=== PATIENT | female | born 1980 | race Caucasian/White ===

== ENCOUNTER 2022-10-04 09:02 | Inpatient (IN) ==
--- NOTE | 2022-09-14 11:32 | PAT Medication Instructions ---
Medication Instructions Date of Service September 14, 2022 Home Medications acetaminophen 325 mg tablet (Tylenol) 325 mg PO QID PRN fluoxetine 20 mg tablet 30 mg PO QPM ibuprofen 200 mg tablet 200 mg PO Q6H PRN lorazepam 0.5 mg tablet 0.5 mg PO TID PRN multivitamin 1 tab PO QPM ASK your surgeon for instructions ibuprofen 200 mg tablet 200 mg PO Q6H PRN Take morning of surgery With a small sip of water, OTHERWISE NOTHING TO EAT OR DRINK AFTER MIDNIGHT: acetaminophen 325 mg tablet (Tylenol) 325 mg PO QID PRN(if needed) lorazepam 0.5 mg tablet 0.5 mg PO TID PRN(if needed) Take evening before surgery acetaminophen 325 mg tablet (Tylenol) 325 mg PO QID PRN(if needed) fluoxetine 20 mg tablet 30 mg PO QPM lorazepam 0.5 mg tablet 0.5 mg PO TID PRN(if needed) multivitamin 1 tab PO QPM Other Notes If you have any questions please call us at [phone] or [phone] or [phone] or [phone]
--- NOTE | 2022-09-20 14:19 | Anesthesiology Consultation ---
Date of Service September 20, 2022 Assessment & Plan (1) Encounter for pre-operative examination: - Pt expresses belief surgeon was planning to also operate on L4-L5 and she plans to call their office for clarification on booking for L5-S1. Surgeon's office also made aware. Chart Review Chart Review: Pending: Refer to Additional Notes / Consult section and Patient seen in Pre Admission Testing Teaching & Discussion Pre-Anesthesia Teaching/Discussion Notes: Instructed NPO after midnight before surgery, except medications with 15 cc of water. Medication instructions provided according to the PAT guidelines. History Surgery Operation Date: 10/04/22 10:25 Proposed Procedures p L5-S1 Decompression and Fusion, Spinal Cord Monitoring - Chaim Lorenz, Height/Weight Height: 5 ft 1 in Weight: 84.822 kg Allergies Allergy/AdvReac Type Severity Reaction Status Date / Time atorvastatin [From Lipitor] AdvReac Vomiting Verified 09/10/22 11:07 cortisone AdvReac Gastrointestinal Verified 09/10/22 11:07 Upset Medications Home Medications Medication Instructions Recorded Confirmed Last Taken acetaminophen 325 mg tablet 325 mg PO QID PRN Pain 09/10/22 09/10/22 Unknown (Tylenol) fluoxetine 20 mg tablet 30 mg PO QPM 09/10/22 09/10/22 Unknown ibuprofen 200 mg tablet 200 mg PO Q6H PRN Pain 09/10/22 09/10/22 Unknown lorazepam 0.5 mg tablet 0.5 mg PO TID PRN Anxiety 09/10/22 09/10/22 Unknown multivitamin 1 tab PO QPM 09/10/22 09/10/22 Unknown Past Medical History Medical History (Updated 09/20/22 @ 14:17 by Madison Ervin PA-C) Anxiety occasional associated palpitations, denies associated chest discomfort, shortness of breath, dizziness or lightheadedness DDD (degenerative disc disease) History of hyperlipidemia History of kidney stones Migraines Sleep apnea CPAP Symptoms consistent with irritable bowel syndrome Patient denies h/o stroke, seizures, heart attack, heart failure, DM, HTN, blood clots or blood transfusions. Exercise / Class Metabolic Activity II 4-5 Yardwork/Stairs/Walk up hill (denies chest discomfort or shortness of breath with 1 FOS) Past Family History Family History Other No family history of adverse response to anesthesia Past Surgical History Surgical History History of x 3 History of colonoscopy History of hysterectomy History of wisdom tooth extraction Past Anesthesia History No Hx of Anesthesia Complications and No Family Hx of Anesthesia Complications History of PONV No Hx of PONV and No Hx of Motion Sickness Social History Smoking Status: Never smoker Do You Dip or Chew Tobacco: No Hx Alcohol Use: No Hx Substance Use: No substance use type: does not use Review of Systems Patient denies chest pain, shortness of breath, dyspnea on exertion, reflux, fever, chills, cough, or wheezing. Physical Exam Vital Signs Vitals BP 111/74 P 68 TEMP 98.4 SP02 98% on RA RESP 18 Physical Full cervical extension range of motion without pain TMD 3.5 finger breadths Mallampati Score 3, small oral opening Dentition: intact, denies chipped or loose teeth, caps/crowns, implants or bridges Lungs: normal respiratory effort. Clear throughout to auscultation, no adventitious breath sounds Cardiac: regular rate and rhythm, no murmurs noted Carotid arteries: negative bruit bilat Lab Results Anesthesia Preop Results Results Anesthesia Widget: WBC 6.89 K/ul (4.8-10.8) 09/20/22 Hgb 14.0 g/dl (12.0-16.0) 09/20/22 Hct 42.6 % (34.1-44.9) 09/20/22 Plt 328 K/uL (130-400) 09/20/22 Na 142 mmol/L (136-145) 09/20/22 K 3.7 mmol/L (3.5-5.1) 09/20/22 Cl 104 mmol/L (98-107) 09/20/22 CO2 33 mmol/L (21-32) H 09/20/22 BUN 13 mg/dl (6-23) 09/20/22 Creat 0.80 mg/dl (0.6-1.2) 09/20/22 Glucose Level 96 mg/dl (70-99(Fasting)) 09/20/22 PT 10.3 Seconds (9.0-12.0) 09/20/22 PTT 26.9 Seconds (21.0-31.0) 09/20/22 INR 1.0 (0.9-1.1) 09/20/22 Urine Color Yellow 09/20/22 Urine Appearance Clear (Clear) 09/20/22 Urine pH 6.0 (4.5-7.5) 09/20/22 Urine Specific [place] 1.022 (1.000-1.030) 09/20/22 Urine Protein Negative (Negative) 09/20/22 Urine Glucose (UA) Negative (Negative) 09/20/22 Urine Ketones Negative (Negative) 09/20/22 Urine Blood Negative (Negative) 09/20/22 Urine Nitrite Negative (Negative) 09/20/22 Urine Bilirubin Negative (Negative) 09/20/22 Urine Urobilinogen Negative (Negative) 09/20/22 Urine Leukocyte Esterase Negative (Negative) 09/20/22 Blood Type B Positive 09/20/22 Antibody Screen NEGATIVE 09/20/22 Testing Electrocardiogram Date: 09/20/22 Sinus bradycardia, rate 59 bpm Chest X-Ray Date: 09/20/22 Cardiomediastinal and hilar silhouettes are within normal limits. No pneumothorax, pleural effusion, airspace consolidation or overt pulmonary edema. Bones of the chest appear grossly intact. IMPRESSION: No acute process. Cervical Spine Date: 07/03/22 MRI Minimal degenerative spondylosis at C5-6 and C6-7 without high-grade thecal sac or foraminal compromise Other Testing MRI L spine 08/17/22 Multilevel degenerative disc disease, greatest at the L4-5 level where results in moderate bilateral neuroforaminal stenosis Please note the transitional anatomy is present and real-time correlation with spinal levels is required before proceeding with any spinal intervention CT abdomen pelvis 07/09/22 Right hydronephrosis and right hydroureter. No ureteral stone Small calcification in the urinary bladder perhaps a recently passed stone COVID-19 Risk Screen Screening Information COVID-19 Screen Date: 09/20/22 Exposure 21 Days Family/Household +COVID Last 21 Days: No Exposure 10 Days Any COVID Exposure Last 10 Days: No Symptoms Last 10 Days Experienced COVID Sx Last 10 Days: No + COVID 0-90 Days COVID + in Last 0-90 Days: No
[~2022-10-04 09:02] MED LIST: ACETAMINOPHEN 500 MG TAB PO SCH; CeleBREX 200 MG CAP PO SCH; GABAPENTIN 900 MG DOSE PO SCH; LR 15ML/HR IV SCH; MIDAZOLAM HCL 1 MG/ML 2ML VIAL ONE; ceFAZolin 2000MG 2,000 MG/15 ML SYR IV SCH; fentaNYL citrate 100 MCG/2 ML VIAL ONE
--- NOTE | 2022-10-04 09:18 | History & Physical Bridge Note ---
Date of Service October 04, 2022 History & Physical Bridge Note I have examined the patient, reviewed the History & Physical and in the interval since the performance of the History & Physical I have noted the following changes of clinical significance: no changes noted
--- NOTE | 2022-10-04 09:19 | History & Physical Report ---
Date of Service October 04, 2022 Assessment & Plan (1) Neurogenic claudication due to lumbar spinal stenosis: Plan: L5-S1 decompression and fusion History of Present Illness Chief Complaint: Back and leg pain Primary Care Provider: LUCINA Cintron This is a 38-year-old female presents with chronic chest and back and leg pain after failing course of nonoperative care she is here for surgical invention. Allergies Allergy/AdvReac Type Severity Reaction Status Date / Time atorvastatin [From Lipitor] AdvReac Vomiting Verified 09/10/22 11:07 cortisone AdvReac Gastrointestinal Verified 09/10/22 11:07 Upset Home Medications Medication Instructions Recorded Confirmed Type acetaminophen 325 mg tablet 325 mg PO QID PRN Pain 09/10/22 09/10/22 History (Tylenol) fluoxetine 20 mg tablet 30 mg PO QPM 09/10/22 09/10/22 History ibuprofen 200 mg tablet 200 mg PO Q6H PRN Pain 09/10/22 09/10/22 History lorazepam 0.5 mg tablet 0.5 mg PO TID PRN Anxiety 09/10/22 09/10/22 History multivitamin 1 tab PO QPM 09/10/22 09/10/22 History Past Med/Surg History Medical History (Updated 10/04/22 @ 09:19 by Chaim Lorenz DO) Anxiety occasional associated palpitations, denies associated chest discomfort, shortness of breath, dizziness or lightheadedness DDD (degenerative disc disease) History of hyperlipidemia History of kidney stones Migraines Sleep apnea CPAP Symptoms consistent with irritable bowel syndrome Surgical History History of x 3 History of colonoscopy History of hysterectomy History of wisdom tooth extraction Family History Other No family history of adverse response to anesthesia Social History Smoking Status: Never smoker Second Hand Exposure: No; Do You Dip or Chew Tobacco: No; Hx Alcohol Use: No Hx Substance Use: No Preferred Language: Czech Communication Ability: Effective [employer] Required: No Beliefs That Will Affect Care: None Current Living Situation: Family Feels Safe at Home: Yes Safety Concerns: Feels Safe At This Time Assistive Devices: Glasses Assistive Devices Comment: reading glasses Physical Exam Physical Exam: Patient is alert and oriented Heart regular rhythm Lungs clear
[2022-10-04] MEDS ORDERED: DEXAMETHASONE SOD INJ 4 MG/ML VIAL ONE (09:33)
[2022-10-04] MEDS ORDERED: PROPOFOL IV EMULSION 10 MG/ML 20 ML VIAL IV ONE (09:33)
[2022-10-04] MEDS ORDERED: ROCURONIUM BROMIDE 10 MG/ML 5 ML VIAL IV ONE (09:33)
[2022-10-04] MEDS ORDERED: LIDOCAINE 2% MPF LOCAL 5 ML VIAL INFIL ONE (09:33)
[2022-10-04] MEDS ORDERED: ONDANSETRON INJ 2 MG/ML 2 ML VIAL ONE (09:33)
[2022-10-04] MEDS ORDERED: ceFAZolin 330 MG/ML 1 GM VIAL ONE (09:47)
[2022-10-04] MEDS ORDERED: BUPIVACAINE/EPINEPHRINE 0.25% 1:200,000 30 ML VIAL ONE (09:47)
[2022-10-04] MEDS ORDERED: ATROPINE SULFATE 0.1 MG/ML 10ML SYR IV PRN (09:52)
[2022-10-04] MEDS ORDERED: ONDANSETRON INJ 2 MG/ML 2 ML VIAL IV PRN ×2 (09:52→12:49)
[2022-10-04] MEDS ORDERED: HYDROmorphone INJ 2 MG/ML SYR/VIAL IV PRN (09:52)
[2022-10-04] MEDS ORDERED: ePHEDrine sulfate 50 MG/ML AMP IV PRN (09:52)
[2022-10-04] MEDS ORDERED: fentaNYL citrate 100 MCG/2 ML VIAL ONE (10:17)
[2022-10-04] MEDS ORDERED: NEOSTIGMINE METHYLSULFATE 1 MG/ML 10ML VIAL ONE (10:33)
[2022-10-04] MEDS ORDERED: GLYCOPYRROLATE 0.2 MG/ML VIAL ONE (10:33)
[2022-10-04] MEDS ORDERED: FLOSEAL HEMOSTATIC MATRIX 10ML TOP ONE (11:16)
--- NOTE | 2022-10-04 11:18 | Operative Report ---
Post Operative Report Pre & Post Diagnosis Operation Date: 10/04/22 10:25 Pre-Op Diagnosis: Lumbar spinal stenosis with neurogenic claudication Post-Op Diagnosis: Same I identified the patient and participated in the time-out.: Yes Procedure Operation Date: 10/04/22 10:25 Actual Procedures #1 lumbar decompression bilateral medial facetectomies and foraminotomies L4-L5 L5-S1. #2 posterior spinal fusion L5-S1. #3 placement posterior instrumentation L5-S1. #4 interbody fusion L5-S1. #5 placement of Spira 11 x 26 mm at L5-S1. #6 placement locally harvested morselized autograft in the posterior gutters. #7 placement of I factor combined with V toss in the interbody space and posterior lateral gutters. Surgeon Chaim Lorenz, DO Cocoa Room Operator Elisabeth Back Estimated Blood Loss 100 Findings See Below The patient is 5 foot 1 inches tall weighing over 85 kg with a BMI in excess of 35. The patient's body habitus did contribute to significant technical difficulty required deepest retractors and longer instruments in order to perform her procedure. This had at least 50% increased operative time. Specimens None Indications This is a 41-year-old female presents with above-mentioned diagnosis after failed course of nonoperative care is here for surgical invention. Description of Procedure Patient was met with identified informed consent obtained. Patient was then taken to the operative suite underwent patient placed in a prone position the [facility] top Harris frame. All bony promises well-padded eyes inspected to ensure no external pressure placed upon them. This point the lumbar spine was prepped and draped in normal sterile fashion. Sharp dissection with the assistance of Bovie cautery performed down to and exposing the lamina transverse processes of L5 and the sacral ala bilaterally. From caudal cephalad fashion complete laminectomy of L5 partial laminectomy of L4 was performed including bilateral medial facetectomies and foraminotomies addressing severe spinal stenosis. Pedicle screws were then placed in L5 and S1 levels bilaterally with assistance of fluoroscopy and appropriately sized marcell placed. By way of a transforaminal approach on the right complete discectomy of L5-S1 was performed endplates curetted to subcortically bone and 11 x 26 mm spiral cage with I factor tapped in position. The rods were then locked into final position bilaterally. The transverse processes of L5 and sacral ala burred to subco rtical bleeding bone. I factor bone of the test and locally harvested morselized autograft was placed in the posterior gutters. 15 round MARYA inserted. The incision was then closed with 1 Vicryl the fascia 2-0 Vicryl subcutaneously and 4 Monocryl for final skin closure. Steri-Strip Steri-Strip placed. Patient waken taken to PACU in stable condition. Please note spinal cord monitoring was utilized at the procedure no changes noted. Lastly Elisabeth Back was present at the entire surgery and while the patient positioning complex portions of the surgery and final skin closure. I attest to the content of the Intraoperative Record and any orders documented therein. Any exceptions are noted below.
--- NOTE | 2022-10-04 11:59 | Fluoroscopy Report ---
FL lumbar spine 2-3V CLINICAL HISTORY: L5-S1 DECOMPRESSION COMPARISON STUDY: None FLUOROSCOPY TIME: 25.7 seconds FLUOROSCOPY IMAGES: 2 EXPOSURE DOSE: 22.68 mGy FINDINGS: Posterior interbody marcell and screw fusion with discectomy. Hardware appears intact. No acute fracture identified. IMPRESSION: Fluoroscopic assistance as above. ACT 112: Negative or not required by law. Electronically signed by: Amado Cervantes M.D. 10/04/2022 11:57 AM
[2022-10-04] MEDS: fentaNYL citrate 100 MCG/2 ML VIAL IV PRN ×2 (12:03→12:08)
[2022-10-04] MEDS ORDERED: DO NOT ADMINISTER FLU VACCINE PRN (12:49)
[2022-10-04] MEDS ORDERED: NALOXONE HCL 0.4 MG/1 ML VIAL/CARP IV PRN (12:49)
[2022-10-04] MEDS ORDERED: bisacodyL 10 MG SUPP PR PRN (12:49)
[2022-10-04] MEDS ORDERED: ACETAMINOPHEN 500 MG TAB PO PRN (12:49)
[2022-10-04] MEDS ORDERED: PROMETHAZINE HCL 12.5 MG in SODIUM CHLORIDE 0.9% 50 ML IV PRN (12:49)
[2022-10-04] MEDS ORDERED: diphenhydrAMINE Capsule 25 MG CAP PO PRN (12:49)
[2022-10-04] MEDS ORDERED: ONDANSETRON 4 MG OD TAB PO PRN (12:49)
[2022-10-04] MEDS ORDERED: hydrOXYzine HCl 25 MG TAB PO PRN (12:49)
[2022-10-04] MEDS ORDERED: ALUMINUM/MAGNESIUM SUSP 30 ML UDC PO PRN (12:49)
[2022-10-04] MEDS ORDERED: SOD PHOSPHATE/SOD BIPHOSPHATE ENEMA 132 ML BTL PR PRN (12:49)
[2022-10-04] MEDS ORDERED: ACETAMINOPHEN 1,000 MG/100 ML VIAL IV PRN (12:49)
[2022-10-04] MEDS ORDERED: MAGNESIUM HYDROXIDE SUSP 30 ML UDC PO PRN (12:49)
[2022-10-04] MEDS ORDERED: METOCLOPRAMIDE HCL INJ 5 MG/ML 2 ML VIAL IV PRN (12:49)
[2022-10-04] MEDS ORDERED: HYDROmorphone INJ 1 MG/ML SYRINGE IV PRN (12:49)
[2022-10-04] MEDS ORDERED: FAMOTIDINE 20 MG TAB PO PRN (12:49)
[2022-10-04] MEDS ORDERED: HYDROmorphone INJ 0.5 MG/0.5 ML SYR IV PRN (12:49)
[2022-10-04] MEDS ORDERED: DO NOT ADMINISTER PNEUMOCOCCAL VACCINE PRN (12:49)
[2022-10-04] MEDS ORDERED: LORazepam 0.5 MG TAB PO PRN (12:49)
[2022-10-04] MEDS ORDERED: LORazepam 2 MG/1 ML VIAL IV PRN (12:49)
[2022-10-04] MEDS: oxyCODONE HCL IR 5 MG TAB (IMMEDIATE RELEASE) PO PRN ×2 (13:07→19:51)
--- NOTE | 2022-10-04 13:49 | Anesthesiology Progress Note ---
Date of Service October 04, 2022 Anesthesia Post Procedure Vital Signs Vital Signs: Temp Pulse Pulse Resp BP Pulse Ox O2 Del Method 10/04/22 13:33 98.6 F 73 16 112/77 96 Room Air 10/04/22 13:05 97.3 F L 81 16 116/77 97 Room Air 10/04/22 12:38 98.6 F 68 16 115/72 93 Room Air 10/04/22 12:25 83 18 128/81 95 Room Air 10/04/22 12:15 98.4 F 88 12 139/83 96 Room Air 10/04/22 12:05 95 H 14 139/63 95 Room Air 10/04/22 11:55 89 12 124/77 98 Room Air 10/04/22 11:45 95 H 15 127/92 100 Oxymask 10/04/22 11:36 97.7 F 87 16 120/92 98 Oxymask 10/04/22 09:34 98.2 F 75 20 119/82 97 Room Air O2 Flow Rate 10/04/22 13:33 10/04/22 13:05 10/04/22 12:38 10/04/22 12:25 10/04/22 12:15 10/04/22 12:05 10/04/22 11:55 10/04/22 11:45 8 10/04/22 11:36 8 10/04/22 09:34 Pain Intensity Lower Back: Pain Intensity: 5 Transfer of Care Handoff Completed per policy Notes Mental Status: alert / awake / arousable and participated in evaluation Patient Amnestic to Procedure: Yes Nausea / Vomiting: adequately controlled Pain: adequately controlled and improving with treatment Airway Patency, RR, SpO2: stable & adequate BP & HR: stable & adequate Hydration State: stable & adequate Anesthetic Complications: no major complications apparent and Pt Satisfied with anesthetic care
[2022-10-04] MEDS: LACTATED RINGER'S 1,000 ML IV SCH ×2 (13:53→22:25)
[2022-10-04] MEDS: ceFAZolin 2000MG 2,000 MG/15 ML SYR IV SCH (17:06)
[2022-10-04] MEDS ORDERED: Nursing to Pharmacy Communication SCH (17:15)
[2022-10-04] MEDS: FLUoxetine HCL 10 MG CAP PO SCH (18:30)
[2022-10-04] MEDS: DOCUSATE SODIUM/SENNA 50/8.6MG TAB PO SCH (19:51)
[2022-10-04] MEDS ORDERED: FLUoxetine HCL 10 MG CAP PO SCH (21:00)
[2022-10-05] MEDS: ceFAZolin 2000MG 2,000 MG/15 ML SYR IV SCH (00:38)
[2022-10-05] MEDS: POLYETHYLENE (MIRALAX) 17 GM PACK PO SCH ×3 (05:34→18:20)
[2022-10-05 06:32] LABS: Basophils # (auto) 0.02 K/uL (0-0.2); Basophils % (auto) 0.1 %; Hematocrit (blood only) 36.6 % (37.0-47.0); Hemoglobin 12.1 g/dl (12.0-16.0); Immature Granulocytes % (auto) 0.5 %; Lymphocytes # (auto) 2.04 K/uL (1.2-3.4); Lymphocytes % (auto) 11.1 %; Mean Corpuscular Hemoglobin 27.3 pg (25.0-34.0); Mean Corpuscular Hgb Conc 33.1 g/dL (32.0-36.0); Mean Corpuscular Volume 82.4 fL (80.0-100.0); Mean Platelet Volume 10.3 fL (9.4-12.4); Monocytes # (auto) 0.71 K/uL (0.11-0.59); Monocytes % (auto) 3.8 %; Neutrophils # (auto) 15.58 K/uL (1.40-6.50); Neutrophils % (auto) 84.5 %; Platelet Count 290 K/uL (130-400); RDW Coefficient of Variation 12.9 % (11.5-14.5); RDW Standard Deviation 38.6 fL (36.4-46.3); Red Blood Count 4.44 M/uL (4.20-5.40); White Blood Count 18.45 K/ul (4.8-10.8)
[2022-10-05 06:41] LABS: BUN Creatinine Ratio 17.6 (10-20); Calcium 8.8 mg/dl (8.5-10.1); Creatinine Clr Calc Pharmacy 97.4 ml/min; Est GFR (Non-African American) 99.2 ml/min; Potassium 4.3 mmol/L (3.5-5.1)
[2022-10-05] MEDS: dexAMETHasone 6 MG in SYRINGE 0 ML IV SCH (09:10)
--- NOTE | 2022-10-05 11:00 | Orthopedic Progress Note ---
Date of Service October 05, 2022 Assessment & Plan (1) Neurogenic claudication due to lumbar spinal stenosis: Plan: Guerrero is postoperative day 1 status post TLIF L5-S1. She is doing great. We will continue with ambulation. DVT prophylaxis is in the form of teds and SCDs. Maintain MARYA drain. Anticipate discharge home tomorrow. Admission and Anticipated Discharge Date Admission Date: October 04, 2022 Vee Trimble is postoperative day 1 status post TLIF L5-S1. She is doing great. No radicular leg pain. Back pain is controlled. MARYA drain output last shift was 35 cc. H&H is morning are 12.1 and 36.6 respectively. She is up and ambulatory with physical therapy and the hallways. No new complaints. Review of Systems Review of Systems: All systems reviewed & are unremarkable except as noted in HPI & below Physical Exam Physical Exam: She is lying in bed in no acute distress Alert and oriented x3 Lumbar dressing is clean dry and intact with functioning MARYA drain Strength intact bilateral lower extremity Calf soft nontender bilaterally Results & Data ([facility]) Vital Signs (Past 12 Hours) Vital Signs Temp Pulse Resp BP Pulse Ox O2 Del Method 10/05/22 07:18 36.9 C 76 16 109/74 96 Room Air 10/05/22 03:04 36.7 C 66 16 97/64 L 95 Room Air 10/05/22 00:53 37.1 C 72 14 96/60 L 94 Room Air 10/04/22 23:11 36.8 C 122 H 18 107/69 98 Room Air
[2022-10-05 11:01] VITALS: TEMP 99
[2022-10-05] MEDS: FLUoxetine HCL 10 MG CAP PO SCH (18:07)
[2022-10-05] MEDS: oxyCODONE HCL IR 5 MG TAB (IMMEDIATE RELEASE) PO PRN (20:58)
[2022-10-05] MEDS: DOCUSATE SODIUM/SENNA 50/8.6MG TAB PO SCH (20:58)
[2022-10-05] MEDS: traMADol HCL 50 MG TABLET PO PRN (22:11)
[2022-10-06] MEDS: POLYETHYLENE (MIRALAX) 17 GM PACK PO SCH ×2 (01:32→06:04)
[2022-10-06 07:35] VITALS: O2SAT 96
[2022-10-06 07:37] VITALS: BP 108/68
[2022-10-06] MEDS: dexAMETHasone 6 MG in SYRINGE 0 ML IV SCH (08:30)
--- NOTE | 2022-10-06 11:43 | Discharge Summary ---
Date of Service October 06, 2022 Admission HPI Per Admitting Provider This is a 38-year-old female presents with chronic chest and back and leg pain after failing course of nonoperative care she is here for surgical invention. Principal Diagnosis Lumbar spinal stenosis with radiculopathy Discharge Data Allergies Allergy/AdvReac Type Severity Reaction Status Date / Time atorvastatin [From Lipitor] AdvReac Intermediate Vomiting Verified 10/04/22 09:27 cortisone AdvReac Intermediate Gastrointestinal Verified 10/04/22 09:27 Upset Procedures Performed Operation Date: 10/04/22 10:25 Actual Procedures p L5-S1 Decompression and Fusion, Spinal Cord Monitoring(Not Applicable) - Chaim Lorenz DO Ordered Studies 10/04/22 10:25 [place] lumbar spine 2-3V Routine Hospital Course (1) Neurogenic claudication due to lumbar spinal stenosis: Patient with limited motion patient tolerated this well was taken to orthopedic for postoperative. Postop day 1 she was up and ambulating progressed postop day #2. Extra strength testing. Drain decreasing probably. Pain well controlled. Subsequently discharged home. Discharge orders and instructions are on the chart for further review. Total Time Total Time Spent Total Time Spent (In Minutes): 20 minutes Discharge Plan Discharge Items Patient Disposition: Home - Self-Care Reason For Visit: POSTOP Discharge Diagnosis: Lumbar spinal stenosis with radiculopathy Activity: As commented below Non-emergency contact: Primary Care Provider Call non-emergency contact if: you have any medication questions Follow-up/Referrals: Juanita West CRNP [Primary Care Provider] - Diet: Regular Addtl Attending Provider Instructions: ACTIVITY RECOMMENDATIONS: SELF CARE INSTRUCTIONS AFTER THORACIC/LUMBAR FUSIONS 1. You may walk to your tolerance. It is good exercise for your legs and back. Expect some back and intermittent leg aches and pains. 2. You may perform "counter-top" level activities (make a sandwich, carisa with a project, etc.). 3. No bending or lifting of more than 10 pounds or back twisting of any nature (roll like a log when turning in bed). 4. You may ride in a car for 20-30 minutes at a time. No driving until after your first visit with your doctor. 5. Frequent changes of position and restricting sitting to 30 minutes at a time will help limit the amount of back spasms and stiffness you may experience. 6. You may discontinue the use of ambulatory aids (cane, crutches, etc.) once your strength and confidence allow. 7. You may shipping support clerk the shower and let water strike your incision when you arrive home at least once daily. Do not take a tub bath, sit in a hot tub or go into a swimming pool until after your first recheck in the office. SPECIAL CARE INSTRUCTIONS: VERY IMPORTANT TO READ AND REVIEW A. Your surgical incision has been closed with a cosmetic suture under the skin that will dissolve in about 6 weeks. In 14 days, you can use a pair of clean scissors and cut the suture that is left outside of the skin at the ends of your incision. 1. The small skin tapes can be removed 7 days after surgery if they have not fallen off by that point. 2. You may keep the wound open to air as much as possible to promote healing after post-op day number 5 unless told otherwise by your doctor. 3. If you think the wound looks like it is becoming infected (redness or worsening drainage) and/or you are experiencing fever, chill or worsening back pain and muscle spasms, contact the office so that we may evaluate you as soon as possible. B. Complications are uncommon, but please contact us if you have any signs or symptoms of: 1. wound infection (fever higher than 102.5 degrees F, redness, separation of wound, drainage, or increasing pain from the incision) 2. blood clots in legs (pain, swelling, redness and warmth in legs) 3. urinary tract infection (fever higher than 102.5 degrees F, burning upon urination or increased frequency of urination) 4. nerve problems (inability to walk on your toes or heels, numbness, loss of bowel or bladder control) 5. any other symptoms that concern you C. Please call the office at if you have any concerns or questions about your operation or recovery. D. No smoking! Smoking drastically decreases the chance of a solid fusion. E. Do not take any anti-inflammatory medications (Indocin, Advil, Motrin, Aspirin, Naprosyn, etc.) as these may inhibit the chance of a solid fusion. Tylenol is okay to take for pain. MANAGING PAIN AFTER SPINAL SURGERY 1. Narcotic medication is intended for short-term use and will be provided for surgical pain. Surgical pain usually lasts for a period of 4-6 weeks. Narcotic medication includes Percocet, Vicodin, Darvocet, Tylenol #3 or Lortab. 2. Longer-term pain is more appropriately treated with non-narcotic medication such as Tylenol ES. 3. Muscle spasm is not appropriately treated with narcotics. Muscle relaxers such as Soma, Flexeril or Skelaxin can be used along with Tylenol ES. 4. Remember that we all live with some "aches and pains". This is not unusual or uncommon after an injury or as we get older. a. Back pain is expected and may include muscle spasms for 4 to 6 weeks after surgery. The pain should gradually improve. If the pain worsens for no apparent reason, please contact the office. b. Intermittent leg pain may also be experienced and should not be concerned about unless it worsens for no apparent reason. If so, please contact the office. 5. We will provide appropriate medication within the normal guidelines of their prescribed use. We will also be very cautious and aware of potential abuse and extended duration of patients' medication needs. a. Pain medications are for your comfort and to assist with sleep and rest so that the tissue can heal. They are not provided in order to return to normal activity and should not be used through the day. To do so or worsening pain at night can result from ongoing tissue damage and de velopment of tolerance to the prescribed medicine. 6. Please allow 2-3 days to process refills. Prescriptions will not be mailed but must be picked up at the office. FOLLOW UP VISIT: Keep your scheduled follow-up appointment. Any questions, please call the office at . Pending Studies at Discharge: No Stand-Alone Forms: My [facility] [employer], Smoking Cessation Medications and DC Order Prescriptions: New oxycodone 5 mg tablet 5 mg PO Q6H PRN (Reason: pain, severe) Qty: 30 0RF tramadol 50 mg tablet 50 mg PO Q6H PRN (Reason: pain, moderate) Qty: 30 0RF Continued multivitamin Tablet 1 tab PO QPM acetaminophen [Tylenol] 325 mg Tablet 325 mg PO QID PRN (Reason: Pain) lorazepam [Ativan] 0.5 mg Tablet 0.5 mg PO TID PRN (Reason: Anxiety) fluoxetine 20 mg Tablet 30 mg PO QPM ibuprofen 200 mg Tablet 200 mg PO Q6H PRN (Reason: Pain) Discharge Orders: Discharge Order (Routine); Ordered 10/06/22 Ordered By: Chaim Lorenz Admission Data Admit Date/Time: 10/04/22 11:21 Attending Provider: Chaim Lorenz Admit Provider: Chaim Lorenz Primary Care Provider: Juanita West
[2022-10-06 11:50] VITALS: PULSE 73
[2022-10-06] MEDS: traMADol HCL 50 MG TABLET PO PRN (11:58)
== END 2022-10-06 12:46 | disposition home or self-care (01) | DRG 455 ==
LOC: ASU 09:02 → 3E 11:37